=== PATIENT | female | born 1990 ===

== ENCOUNTER 2025-04-07 08:13 | Emergency (ER) | payer SELFPAY ==
[2025-04-07 08:22] VITALS: BP 153/83; PULSE 72; RESP 18; TEMP 36.7; O2SAT 100; BMI 44.8
--- NOTE | 2025-04-07 08:27 | EDNOTE_ITS ---
<Statement entered by Janette Tellez MD - 04/08/25 06:23> As co-signing physician, I was present and available for consult prn. I concur with the plan and care as documented by the midlevel provider. ED Dental RME/HPI General Chief complaint: Dental/Oral/Throat Stated complaint: Left side of face swollen Time Seen by Provider: 04/07/25 08:20 Arrival date/time: 04/07/25 08:13 35-year-old female presents to the emergency department today for complaints of left upper dental pain and facial swelling patient reports that she has a dental abscess patient reports she has a follow-up with dentist tomorrow Limitations: no limitations Related Data Previous Rx's ?Medication ?Instructions ?Recorded amoxicillin 875 mg-potassium 1 tab PO BID 10 days #20 tabs 04/07/25 clavulanate 125 mg tablet ibuprofen 800 mg tablet 800 mg PO TID PRN pain #30 t abs 04/07/25 Allergies Allergy/AdvReac Type Severity Reaction Status Date / Time No Known Allergies Allergy Verified 04/07/25 08:16 Review of Systems Review of Systems Systems Reviewed: All systems reviewed, normal except as documented Constitutional Constitutional: Reports system reviewed and no additional complaints, except as documented, Denies fever(s) and Denies headache(s) Eyes Eyes: Reports system reviewed and no additional complaints, except as documented and Denies blurry vision ENT Ears, Nose, Mouth, and Throat: Reports system reviewed and no additional complaints, except as documented, Reports dental pain, Reports facial pain, Denies headache(s), Denies nasal congestion and Denies nasal discharge Cardiovascular Cardiovascular: Reports system reviewed and no additional complaints, except as documented, Denies chest pain and Denies dyspnea Respiratory Respiratory: Reports system reviewed and no additional complaints, except as documented, Denies chest congestion, Denies cough and Denies dyspnea Gastrointestinal Gastrointestinal: Reports system reviewed and no additional complaints, except as documented and Denies abdominal pain Integumentary/Breasts Skin/Breast: Reports system reviewed and no additional complaints, except as documented and Denies rash Neurologic Neurologic: Reports system reviewed and no additional complaints, except as documented, Reports as per HPI and Denies headache(s) Past Medical History Social History SMOKING STATUS: Never smoker ED Exam General Limitations: Present no limitations General appearance: Present alert and in no apparent distress Head Head exam: Present atraumatic Eye Eye exam: Present normal appearance, PERRL and EOMI ENT ENT exam: Present mucous membranes moist Expanded ENT Exam Teeth exam: Present dental caries, fractured tooth #, dental tenderness # and gingival swelling Neck Neck exam: Present normal inspection, full ROM and trachea midline Chest Chest inspection: Present normal inspection and symmetric chest wall rise Respiratory Respiratory exam: Present normal lung sounds bilaterally Cardiovascular Cardiovascular exam: Present regular rate, normal rhythm and normal heart sounds Abdominal Exam Abdominal exam: Present soft and normal bowel sounds Extremities Exam Extremities exam: Present normal inspection and full ROM Back Exam Back exam: Present normal inspection and full ROM Neurological Exam Neurological exam: Present alert, oriented X3 and CN II-XII intact Psychiatric Psychiatric exam: Present normal affect and normal mood Skin Skin exam: Present warm, dry, intact and normal color Course Quality Measures none Orders Category Date Time Status Ibuprofen Tab [Motrin Tab] Med 04/07/25 08:27 Discontinued 800 mg PO X1 ONE Lidocaine 1% 20 ml [Xylocaine 1% 20 ML] Med 04/07/25 08:27 Discontinued 2.1 ml INFL X1 ONE cefTRIAXone [Rocephin] Med 04/07/25 08:27 Discontinued 1,000 mg IM X1 ONE Vital Signs Vital signs: Vital Signs Temperature 98.0 F 04/07/25 08:22 Pulse Rate 72 04/07/25 08:22 Respiratory Rate 18 04/07/25 08:22 Blood Pressure 153/83 H 04/07/25 08:22 Pulse Oximetry (%) 100 04/07/25 08:22 Oxygen Delivery Method Room Air 04/07/25 08:22 O2 saturation 100% room air wnl Dental / Oral MDM Narrative MDM Narrative:: 35-year-old female presents to the emergency department today for complaints of left upper dental pain and facial swelling patient reports that she has a dental abscess patient reports she has a follow-up with dentist tomorrow On exam patient well-appearing patient does not appear ill or toxic in no acute distress on exam patient appears to have dental abscess Patient to be treated symptomatically patient with no difficulties with swallowing or breathing Patient discharged home in no distress to follow-up with primary care doctor in the next 24 to 48 hours and for any worsening symptoms to return to the ER immediately Patient data External records reviewed:: [facility] previous records Clinical information provided by:: patient Social determinants that could affect healthcare access:: none Patient has the following chronic illnesses:: none How is presenting disease/condition affected by chronic disease/condition?: no chronic disease Evaluation data The following diagnostics were reviewed and interpreted by me:: other (specify) (N/A) Lab and/or radiology exams considered but not ordered:: Consider not ordered Interpretation Summary: N/A Medications / Prescriptions Medications or Prescriptions considered but not ordered:: Given Medication administrations:: Medication Administration History Discontinued Medications Ceftriaxone Sodium (Ceftriaxone Sod Inj 1,000 Mg Vial) 1,000 mg IM X1 ONE Stop: 04/07/25 08:28 Last Admin: 04/07/25 08:38 Dose: 1,000 mg Documented By: LT Ibuprofen (Ibuprofen Tab 400 Mg Tablet) 800 mg PO X1 ONE Stop: 04/07/25 08:28 Last Admin: 04/07/25 08:37 Dose: 800 mg Documented By: LT Lidocaine HCl (Lidocaine Hcl 1% 20 Ml Vial) 2.1 ml INFL X1 ONE Stop: 04/07/25 08:28 Last Admin: 04/07/25 08:38 Dose: 2.1 ml Documented By: LT Given Consultations Consultation(s) initiated? (list below): No Diagnosis Dental Differential Diagnosis: gingival abscess, dental caries, toothache and dental abscess Most likely diagnosis given after review of the tests above:: Dental pain Admission Indicated Admission indicated?: not indicated Admission Request Was there a request for admission?: No Disposition Plan Disposition Plan: Discharge Discharge Attestation Discharge Attestation: The patient and all family members were given an opportunity to ask questions and understood the discharge instructions. Discharge instructions specifically effects, indications for sooner follow up or return to the emergency department, and the expected course of current diagnosis. Patient condition: Stable Discharge Plan Plan Patient Disposition: HOME (Self Care) Discharge Disposition comment: Stable Prescriptions/Referrals Prescriptions/Med Rec: New ibuprofen 800 mg tablet 800 mg PO TID PRN (Reason: pain) Qty: 30 0RF amoxicillin-pot clavulanate 875-125 mg tablet 1 tab PO BID 10 Days Qty: 20 0RF Problem List Clinical Impression: Dental abscess Patient/Caregiver Discharge Instructions Education Materials: ED Dental Abscess Additional Instructions: Please keep your appointment with your dentist tomorrow for worsening symptoms return immediately Print Language: Tuvaluan Stand Alone Forms: [employer] Award Info., Work/School Release, Patient Portal Info Letter PA/IFTIKHAR Supervising Physician PA/CON[employer]OR [employer]T [employer]PERATOR Supervising Physician: Dr. tellez
[2025-04-07] MEDS: IBUPROFEN TAB 400 MG TABLET 800 MG PO (08:37)
[2025-04-07] MEDS: LIDOCAINE HCL 1% 20 ML VIAL 2.1 ML INFL (08:38)
[2025-04-07] MEDS: cefTRIAXone SOD INJ 1,000 MG VIAL 1000 MG IM (08:38)
== END 2025-04-07 09:44 | disposition home or self-care (01) ==
PROVIDERS: Emergency Provider Emergency Medicine
DX: K04.7 Periapical abscess without sinus (principal)
CPT/HCPCS: 96372; 99283; J0696; J3490; A9270